=== PATIENT | male | born 1965 | race Hispanic/Latino ===

== ENCOUNTER 2024-07-19 09:56 | Day surgery (SDC) | payer BC, OTHER ==
[2024-07-17 14:59] LABS: Absolute Basophils 0.1 K/uL (0-0.5); Absolute Eosinophils 0.2 K/uL (0-0.5); Absolute Lymphocytes (CBC) 1.2 K/uL (0.7-4.9); Absolute Monocytes 0.4 K/uL (0.1-1.3); Absolute Neutrophil 4.2 K/uL (1.8-8.0); Basophils % 1.2 % (0-1.3); Hemoglobin 13.9 g/dL (13.6-17.9); Lymphocytes % 19.3 % (15.3-44.8); MCH 30.4 pg (27.0-35.0); MCV 89.5 fL (80-100); MPV 8.7 fL (7.6-11.3); Monocytes % 6.8 % (3.3-12.3); Neutrophils % 68.7 % (41.7-73.7); Nucleated Red Blood Cells % 0.1 % (0-0); Platelets 234 thou/uL (152-406); RBC Red Blood Cell Count 4.58 M/uL (4.33-5.43)
[2024-07-17 15:12] LABS: Anion Gap 6.9 mEq/L (5.0-15.0); Potassium 4.9 mEq/L (3.5-5.1)
--- NOTE | 2024-07-17 23:10 | RAD REPORT ---
EXAMINATION: TWO VIEW CHEST XR CLINICAL INDICATION: Male, 59 years old. [facility] Pre-op pending trigger finger release TECHNIQUE: 2 view radiographs of the chest were performed. COMPARISON: 07/08/2016 FINDINGS: The lungs are well inflated and clear. No pneumothorax or sizable effusion. The heart is normal in si ze. Mediastinal contours are unremarkable. IMPRESSION: No acute or significant abnormalities.
[2024-07-19] MEDS: Ringers Lactate 1,000 ML IV ONE (10:15)
[2024-07-19] MEDS ORDERED: ONDANSETRON 4 MG/2 ML VIAL ONE (11:01)
[2024-07-19] MEDS ORDERED: FENTANYL CITR 100 MCG/2 ML ONE (11:01)
[2024-07-19] MEDS ORDERED: propofoL 200 MG/20 ML VIAL IV ONE (11:01)
[2024-07-19] MEDS ORDERED: LIDOCAINE 2% MPF 5 ML VIAL ONE (11:01)
[2024-07-19] MEDS ORDERED: MIDAZOLAM HCL 2 MG/2 ML INJ ONE (11:01)
[2024-07-19] MEDS ORDERED: EPHEDRINE SULF 50 MG/ML VIAL ONE (11:15)
[2024-07-19] MEDS: CEFAZOLIN SODIUM 1 GM/VIAL ONE (11:24)
[2024-07-19] MEDS: BUPIVACAINE 0.25% PF 10 ML VIAL ONE (11:27)
[2024-07-19] MEDS ORDERED: KETOROLAC 30 MG/ML INJ ONE (11:51)
--- NOTE | 2024-07-19 12:04 | P.BOP ---
Preoperative diagnosis: Left trigger thumb Postoperative diagnosis: same Primary procedure: Left thumb A1 yomi release Recreation Coordinator: NONE,NONE Estimated blood loss: 2 cc Specimen: None Findings: See dictation Anesthesia: General Complications: None Implants: None Fluids & blood products: Per anesthesia record Transferred to: Recovery Room Condition: Good
[2024-07-19 12:05] VITALS: O2SAT 100
--- NOTE | 2024-07-19 12:07 | P.OP ---
Preoperative diagnosis: Left trigger thumb Postoperative diagnosis: Same Primary procedure: Left thumb A1 yomi release Anesthesia: General Estimated blood loss: 2 cc Specimen: None Findings: See dictation Operative Technique: Indication procedure: Sin is a 59-year-old male presented to clinic with signs symptoms and physical exam findings consistent with a left trigger thumb. Chapito flores failed conservative treatment measures. Given the continued pain and difficulties with activities of daily living and elected proceed with operative treatment including A1 yomi release. Description of procedure: After informed consent was obtained, the patient was identified in the preoperative holding area and the left thumb was marked. Patient was then brought back to the operating room, transferred to the operating table in supine fashion and placed under general anesthesia. The left upper extremity was then prepped and draped in usual sterile fashion. A timeout was initiated. The correct patient and procedure were confirmed and identified. The patient did receive his preoperative prophylactic antibiotics. The left upper extremity was exsanguinated using an Esmarch and the tourniquet was inflated to 250 mmHg. Approximately 1.5 cm incision was made over the flexor crease and A1 yomi of the left thumb. Dissection was then taken down the flexor tendon sheath. It was split longitudinally. A small portion of the flexor tendon sheath was excised to minimize risk of recurrence. The flexor tendon was then brought out through the incision and there was full excursion of the tendon without triggering noted. The wound was then irrigated thoroughly with normal saline. The skin is approximately using a 5-0 Prolene. Sterile dressings were applied. The tourniquet was let down and the patient was awakened and transferred to PACU in stable condition. Postoperative plan: The patient will follow-up in my clinic in 10 days for wound check and suture removal. The patient will be nonweightbearing of his left hand. Complications: None Implants: None Fluids & blood products: Per anesthesia record Transferred to: Recovery Room Condition: Good
[2024-07-19 13:51] VITALS: TEMP 97
[2024-07-19 13:52] VITALS: BP 118/70
--- NOTE | 2024-07-19 14:46 | EKG ---
Test Date: 2024-07-17 Test Time: 14:03:07 Integrated Logistics Support Manager: AMBIKA MEASUREMENT RESULTS: Intervals: Rate: 52 MS: 148 QRSD: 86 QT: 444 QTc: 412 [place]: P: 60 MS: 148 QRS: 25 T: 40 INTERPRETIVE STATEMENTS: Sinus bradycardia Possible Left atrial enlargement Borderline ECG No previous ECG available for comparison Electronically Signed On 07-19-24 14:41:56 CDT by Andrés Najera
== END 2024-07-19 13:08 | disposition home or self-care (01) ==
LOC: OR 09:56
PROVIDERS: ATTEND Orthopaedic Surgery Sports Medicine
PROC: 0LN80ZZ Release Left Hand Tendon, Open Approach (ICD-10-PCS; principal; 2024-07-19 11:00)
DX: M65.312 Trigger thumb, left thumb (principal)
CPT/HCPCS: 93005; 85025; 80048; 36415; 71046; 26055; J2704; J2003; J2250; J3010; J2405; J7120; J0690